=== PATIENT | male | born 1995 | race Caucasian/White ===

== ENCOUNTER 2020-08-10 09:10 | Outpatient (CLI) | payer MEDICAID ==
[~2020-08-10] VITALS: Ht 193 cm; Wt 90.7 kg
[2020-08-10 09:33] VITALS: BP 124/61
[2020-08-10] MEDS ORDERED: TRUVADA 200 MG1 EAC1 ORAL (09:57)
[2020-08-10] MEDS ORDERED: OMEPRAZOLE10 M1 ORAL (09:57)
--- NOTE | 2020-08-10 10:59 | Consultation ---
DATE OF CONSULTATION: 08/10/2020 CONSULTING PHYSICIAN: Gilberot Abdi MD. CHIEF COMPLAINT: Referral for endoscopy. HISTORY OF PRESENT ILLNESS: This is a very pleasant 24-year-old male with history of esophageal stricture requiring dilatation in the past. Last endoscopy was in 2018, was referred to us for repeat endoscopy. PAST MEDICAL HISTORY: 1. Lactose intolerance, gluten sensitivity. 2. Esophageal stricture requiring dilatation. 3. Anal fissures. PAST SURGICAL HISTORY: Tonsillectomy. MEDICATIONS: Omeprazole and tramadol. FAMILY HISTORY: Mother had gastric cancer. SOCIAL HISTORY: The patient occasionally drinks, but he uses marijuana. ALLERGIES: No known allergies. REVIEW OF SYSTEMS: Positive for history of esophageal stricture, but not symptomatic at this time. OBJECTIVE: VITAL SIGNS: Temperature 98.1, pulse 71, respirations 20, blood pressure 124/60. HEENT: Normocephalic and atraumatic. Sclerae are anicteric. NECK: Supple. No evidence of obvious lymphadenopathy. CARDIOVASCULAR: Regular rate and rhythm. Plus S1-S2. LUNGS: Clear to auscultation bilaterally. ABDOMEN: Positive bowel sounds. Soft and nontender. No rebound. No guarding. No peritoneal sign. EXTREMITIES: No cyanosis, no clubbing, no edema. ASSESSMENT AND PLAN: The patient is a 24-year-old male with history of esophageal stricture and chronic GERD, on PPI, needs repeat endoscopy. Plan is to perform when authorization is obtained. Gilberto Abdi M.D. DR: SANDRITA JOB#: [id number] CC:
== END 2020-08-10 11:10 | disposition home or self-care (01) ==
LOC: PAN 09:10
DX: K21.9 Gastro-esophageal reflux disease without esophagitis (principal); E73.9 Lactose intolerance, unspecified; Z80.0 Family history of malignant neoplasm of digestive organs; Z79.899 Other long term (current) drug therapy; F12.90 Cannabis use, unspecified, uncomplicated
CPT/HCPCS: G0463

== ENCOUNTER 2020-10-25 13:01 | Outpatient (CLI) | payer MEDICAID ==
[~2020-10-25 13:01] MED LIST: OMEPRAZOLE10 M1 ORAL; TRUVADA 200 MG1 EAC1 ORAL
[2020-10-25 13:10] VITALS: BP 145/75
--- NOTE | 2020-10-25 13:23 | General Progress Note ---
Subjective ROS Limited/Unobtainable: Yes Allergies: Coded Allergies: No Known Allergies (Unverified , 08/10/20) Objective Last 24 Hour Vital Signs Date Time Temp Pulse Resp B/P (MAP) Pulse Ox O2 Delivery O2 Flow Rate FiO2 10/25/20 13:10 98.5 82 14 145/75 98 General Appearance: no apparent distress EENT: normal ENT inspection Neck: supple Cardiovascular: normal rate Respiratory/Chest: lungs clear Abdomen: hypoactive bowel sounds Assessment/Plan Assessment/Plan: GERD s/p EGD gastritis irreg Z line asymptomatic RTC prn Gilberto Abdi MD Oct 25, 2020 13:23
== END 2020-10-25 15:01 | disposition home or self-care (01) ==
LOC: PAN 13:01
DX: K21.9 Gastro-esophageal reflux disease without esophagitis (principal); K29.70 Gastritis, unspecified, without bleeding
CPT/HCPCS: 99212